=== PATIENT | female | born 1990 | race Hispanic/Latino ===

== ENCOUNTER → 2018-07-13 | Outpatient (CLI) | payer BC ==
--- NOTE | 2018-07-13 13:35 | Diagnostic Imaging Report ---
Thyroid ultrasound History: Thyroid enlargement. Comparison: None Findings: The thyroid echotexture is normal. Vascularity is normal. The right lobe measures 4.6 x 1.3 x 1.7 cm. The left lobe measures 4.3 x 1.0 x 1.7 cm. The isthmus measures 0.3 cm. No evidence of thyroid nodule. Lymph Nodes: No cervical lymph nodes are identified. Parathyroids: Not visualized. IMPRESSION: Unremarkable thyroid ultrasound. Signed by: Dr. Rosa Maria Jacome MD on 07/13/2018 1:32 PM
== END ==
LOC: US 10:35
PROVIDERS: ATTEND Family Medicine
DX: E04.9 Nontoxic goiter, unspecified (principal)
CPT/HCPCS: 76536